=== PATIENT | female | born 1940 | race Caucasian/White ===

== ENCOUNTER 2017-05-15 06:40 | Day surgery (SDC) | payer MEDICARE, BC ==
[~2017-05-15 06:40] MED LIST: Acetaminophen TAB* 325 MG PO PRN; Buffered Lidocaine 0.9% SYRIN* 5 ML/SYR SYRINGE INTRADERM ONE
[2017-05-15] MEDS ORDERED: Midazolam* 1 MG/ML 2 ML VIAL (2 MG) ONE (07:17)
[2017-05-15 08:58] VITALS: BP 121/67
--- NOTE | 2017-05-15 10:04 | OP ---
DATE OF OPERATION: 05/15/2017. DATE OF : 1940 SURGEON: Poncho Fournier M.D. PREOPERATIVE DIAGNOSIS: Cataract right eye POSTOPERATIVE DIAGNOSIS: Cataract right eye. OPERATIVE PROCEDURE: Extracapsular cataract extraction with intraocular lens implant right eye. PROCEDURE: The patient was brought to the operating room after being given 1/2% Alcaine with epineph rine drops in the preoperative area. The eye was prepped and draped in the usual sterile fashion. S terile drape and eyelid speculum were placed. Again, topical 1/2% Alcaine with epinephrine was given . A paracentesis incision was made at the 9 o'clock position with the No.75 blade. Clear cornea inc ision 2.2 x 2.2-mm was created at the 12 o'clock position starting at the anterior limbus using the 2 .2-mm keratome. The anterior chamber was irrigated with 0.4 mL of 1% non-preservative intracameral l idocaine and filled with DisCoVisc. A capsulorrhexis was completed using the cystotome and the Utrat a forceps. Hydrodissection was performed with balanced salt solution. The lens nucleus was removed w ith the Phacoemulsification handpiece without incident. Cortex was removed with the irrigation-aspir ation handpiece. The capsular bag was re-inflated using DisCoVisc and an SN60WF 20.5 implant was ins erted with the shooter. The irrigation-aspiration handpiece was used to remove all residual DisCoVis c. The eye was refilled with balanced salt solution and the wound checked and found to be watertight . Topical Maxitrol drops were given. [id number]/[facility] #: [id number]
[2017-05-15] MEDS ORDERED: Ketorolac 0.5% OPHTH (NF) 0.5 % 5 ML BTL ONE (11:55)
[2017-05-15] MEDS ORDERED: Phenylephrine 2.5% OPTH.SOL* 2 ML BTL ONE (11:55)
[2017-05-15] MEDS ORDERED: Cyclopentolate 1% OPTH.SOL* 2 ML BTL ONE (11:55)
[2017-05-15] MEDS ORDERED: Neomycin/Polymy/Dex OPTH.SUSP* MAXITROL 0.1% 5 ML ONE (11:55)
[2017-05-15] MEDS ORDERED: Lidocaine 1% MPF* 2 ML VIAL ONE (11:55)
[2017-05-15] MEDS ORDERED: Proparacaine 0.5% OPHTH.SOL* 15 ML BTL ONE (11:55)
[2017-05-15] MEDS ORDERED: acetaZOLAMIDE TAB* 250 MG ONE (11:55)
[2017-05-15] MEDS ORDERED: Lidocaine 2% EPI 1:200000 MPF* 20 ML VIAL ONE (11:55)
[2017-05-15] MEDS ORDERED: Povidone Iodine 5% OPTH* 30 ML BTL ONE (11:55)
== END 2017-05-15 08:12 | disposition home or self-care (01) ==
LOC: OREAST 06:40
PROVIDERS: ATTEND Specialist
DX: H25.811 Combined forms of age-related cataract, right eye (principal); H43.813 Vitreous degeneration, bilateral; F32.9 Major depressive disorder, single episode, unspecified; E78.00 Pure hypercholesterolemia, unspecified; Z96.1 Presence of intraocular lens
CPT/HCPCS: A9270-GY; J2250; V2632

== ENCOUNTER 2017-08-09 20:25 | Emergency (ER) | payer MEDICARE, BC ==
--- NOTE | 2017-08-09 21:10 | UC ---
Lower Extremity/Ankle HPI - HPI Summary HPI Summary: 76 y/o female presents to the urgent care accompany by daughter c/o Left lower leg bruised and swollen since this afternoon. Daughter reports he mother lives alone w/ her 2 dogs. Pt doesn't recall any injury. However she states she is very active and she likes to walk her dogs. She noticed the swelling in increasing and she applied ice and her son gave her a baby ASA to alleviate symptoms. Daughter is concerned of a clot. Pain is 4/10 at touch. She has FROM of LF knee and LF ankle. Pt denies fever, recent URI, SOB, chest pain, palpitation, calf pain, recent travel, Hx of DVT, abdominal pain, N/V/D or numbness or tingling over the LF lower extremity. - History of Current Complaint Chief Complaint: UCLowerExtremity Stated Complaint: LEG COMPLAINT Time Seen by Provider: 08/09/17 21:07 Hx Obtained From: Patient, Family/Distribution Center Administrator - neda. ?: No - menopausal Onset/Duration: Sudden Onset, Lasting Hours - 8hrs, Still Present Severity Initially: Mild Severity Currently: Mild Pain Intensity: 2 Pain Scale Used: 0-10 Numeric Aggravating Factor(s): Other - touch Alleviating Factor(s): Rest, Ice, OTC Meds Able to Bear Weight: Yes - Risk Factors Gout Risk Factors: Age Over 40 DVT Risk Factors: Negative Septic Arthritis Risk Factor: Negative - Allergies/Home Medications Allergies/Adverse Reactions: Allergies Allergy/AdvReac Type Severity Reaction Status Date / Time amoxicillin Allergy Severe Hives Verified 08/09/17 20:34 Home Medications: Home Medications Cholecalciferol TAB* [Vitamin D TAB*] 08/09/17 [History] buPROPion TAB* [Wellbutrin TAB*] 08/09/17 [History] PMH/Surg Hx/FS Hx/Imm Hx Previously Healthy: Yes Other Endocrine History: Osteoporosis Other Neurological History: early onset Dementia - Surgical History Surgical History: Yes Surgery Procedure, Year, and Place: left shoulder repair 1995 [facility] [place]. left eye cataract extraction with IOL 2013 [facility] [place] - Family History Known Family History: Positive: Cardiac Disease Family History: Strokes - Social History Occupation: Retired Lives: Alone Alcohol Use: None Substance Use Type: None Smoking Status (MU): Former Smoker Amount Used/How Often: 1/ ppd for 10 years When Did the Patient Quit Smoking/Using Tobacco: 1999 - Immunization History Vaccination Up to Date: Yes Review of Systems Constitutional: Negative Skin: Bruising - medial aspect of left lower leg Eyes: Negative ENT: Negative Respiratory: Negative Cardiovascular: Negative Gastrointestinal: Negative Genitourinary: Negative Motor: Negative Neurovascular: Negative Musculoskeletal: Other: - Left lower leg pain Neurological: Negative Psychological: Negative Is Patient Immunocompromised?: No All Other Systems Reviewed And Are Negative: Yes Physical Exam - Summary Physical Exam Summary: Vital Signs Reviewed: Yes Appearance: Well-Appearing, No Pain Distress, Well-Nourished, thin female sitting in the examining table w/o any apparent distress. Eyes: Positive: Conjunctiva Clear - PERRLA< TERRY, fundi grossly WNL ENT: Positive: Normal ENT inspection, Hearing grossly normal, Pharynx normal, TMs normal, Uvula midline Neck: Positive: Supple, Nontender, No Lymphadenopathy Respiratory: Positive: Chest non-tender, Lungs clear, Normal breath sounds, No respiratory distress Cardiovascular: Positive: RRR, No Murmur, Pulses Normal, Brisk Capillary Refill Abdomen Description: Positive: Nontender, No Organomegaly, Soft. Negative: CVA Tenderness (R), CVA Tenderness (L) Bowel Sounds: Positive: Present Extremities: L extremity without deformity or asymmetry when compared to the R. Medial aspect of the distal left lower extremity w/ ecchymosis and bruising and moderate swelling, and mild induration and tender to palpation, no edema. No overlying erythema, warmth, discoloration. No lesions or break in skin integrity. Both calves same diameter. Soft tissues of posterior lower legs are soft, supple, nontender and no palpable cords or evidence of thrombophlebitis. No evidence of gangrene or compartment syndrome. Medial thigh is without soft tissue swelling or tender to palpation. Negative Homans sign. No proximal lymphangitis or lymphadenopathy. Neurological Exam: Normal Psychological Exam: Normal Skin Exam: Normal Triage Information Reviewed: Yes Vital Signs: Initial Vital Signs Temp 98.1 F 08/09/17 20:29 Pulse 92 08/09/17 20:29 Resp 18 08/09/17 20:29 BP 190/69 08/09/17 20:29 Pulse Ox 98 08/09/17 20:29 Lower Extremity Course/Dx - Course Course Of Treatment: 76 y/o female presents to the urgent care accompany by daughter c/o Left lower leg bruised and swollen since this afternoon. Daughter reports he mother lives alone w/ her 2 dogs. Pt doesn't recall any injury. However she states she is very active and she likes to walk her dogs. She noticed the swelling in increasing and she applied ice and her son gave her a baby ASA to alleviate symptoms. Daughter is concerned of a clot. Pain is 4/10 at touch. She has FROM of LF knee and LF ankle. Pt denies fever, recent URI, SOB, chest pain, palpitation, calf pain, recent travel, Hx of DVT, abdominal pain, N/V/D or numbness or tingling over the LF lower extremity. No Hx of recent surgery. Hx obtained. Pt w/ medial aspect of distal left lower extremity w/ a hematoma about 2.0cm x 2.0 cm in size, tender to palpation and swollen on examination. Pt w/ PMHX of osteoporosis and probably early onset of Dementia. Pt 's symptoms consulted w/ DR Giron. She evaluated Pt and she agreed on a conceled hematoma due possible contusion. She doen't think DVT since it is very superficial. She recommeded X-ray to r/o Fracture. LF lower extremity X-ray ordered: impression: negative for fracture, soft tissue swelling observed as per radiologist. Pt Rx Tyelenol for pain, Advise RICE. Daughter advised to continue applying ice and elevate lower leg and if not improvement of symptoms to f/u w/ PCP for further treatment. Pt's BP is elevated today advised to decrease salt in diet, monitor BP and f/u with PCP for further management. Re- cheched BP:160/88. Daughter and PT agreed w/ plan of care. Pt left the clinic ambulating, hemodynamically stable, A&OX3 - Differential Dx/Diagnosis Differential Diagnosis/HQI/PQRI: Arthritis, Contusion, Fracture (Closed), Sprain , Strain, Tendonitis Provider Diagnoses: 1- Medial aspect of distal left lower extremity w/ hematoma s/p injury. 2-Uncontrolled HTN Discharge - Discharge Plan Condition: Stable Disposition: HOME Prescriptions: Acetaminophen TAB* [Tylenol TAB*] 650 mg PO Q6H PRN #20 tab PRN Reason: Pain Patient Education Materials: Contusion in Adults (ED), Low-Sodium Diet (ED), Hematoma (ED) Referrals: Abbey Morgan MD [Medical Doctor] - 1 Week Additional Instructions: 1-Please take medications as directed to alleviate pain and swelling. 2-Please apply ice, Elevate leg, at night time, Avoid strenuous exercise or standing for long periods of time 3- Please f/u with your PCP in 1 week if not improvement of symptoms for further evaluation and treatment. 4- If your mother develops severe calf pain, SOB, palpitations please go immediately to the ER for further management 5-Your BP is elevated today. please decrease salt in your diet, monitor BP and if it continues to be elevated please f/u with your PCP for further management
--- NOTE | 2017-08-09 21:59 | RAD ---
Indication: Pain/bump medial distal lower leg. Uncertain of proceeding injury. Comparison: No relevant prior exams available on the [facility] PACS for comparison. Technique: AP and lateral views LEFT lower leg. Report: Focal soft tissue swelling medial aspect distal lower leg. No conspicuous subcutaneous emphysema or foreign body. Negative for fracture or malalignment. Small heel spurs. IMPRESSION: Soft tissue tissue swelling without additional finding.
[2017-08-09 22:22] VITALS: BP 160/88
== END 2017-08-09 22:27 | disposition home or self-care (01) ==
LOC: UCEAST 20:25
DX: S80.12XA Contusion of left lower leg, initial encounter (principal); X58.XXXA Exposure to other specified factors, initial encounter; Y93.9 Activity, unspecified; Y92.9 Unspecified place or not applicable; M81.0 Age-related osteoporosis without current pathological fracture; F03.90 Unspecified dementia, unspecified severity, without behavioral disturbance, psychotic disturbance, mood disturbance, and anxiety; Z88.1 Allergy status to other antibiotic agents; Z87.891 Personal history of nicotine dependence
CPT/HCPCS: 99212; G0463

== ENCOUNTER 2020-10-24 21:01 | Inpatient (IN) ==
[2020-10-24 23:43] LABS: ABS Basophils 0.1 10^3/ul (0-0.2); ABS Eosinophils 0.1 10^3/ul (0-0.6); ABS Lymphocytes 2.1 10^3/ul (1.0-4.8); ABS Monocytes 1.1 10^3/ul (0-0.8); Eosinophil % 0.7 %; Hematocrit 44 % (35-47); Hemoglobin 14.8 g/dL (12.0-16.0); Lymphocyte % 15.9 %; Mean Corpuscular HGB Conc 33 g/dL (31-36); Mean Corpuscular Hemoglobin 31 pg (27-31); Mean Corpuscular Volume 93 fL (80-97); Mean Platelet Volume 7.7 fL (7.4-10.4); Platelet Count 292 10^3/uL (150-450); Red Blood Count 4.79 10^6 /uL (3.70-4.87); Red Cell Distribution Width 14 % (10-15); White Blood Count 13.4 10^3/uL (3.5-10.8)
[2020-10-24 23:59] LABS: Albumin 4.1 g/dL (3.2-5.2); Albumin/Globulin Ratio 1.3 (1-3); Calcium 9.9 mg/dL (8.6-10.3); EGFR African American 71.1 (>60); EGFR Non-African American 58.7 (>60); Globulin 3.1 g/dL (2-4); Potassium 3.7 mmol/L (3.5-5.0); Total Bilirubin 0.6 mg/dL (0.2-1.0); Total Protein 7.2 g/dL (6.4-8.9)
[2020-10-25] MEDS ORDERED: Iodixanol (CONTRAST) 320 MG/ML 100 ML SDV IV ONE (00:11)
[2020-10-25] MEDS ORDERED: Iohexol 350 (CONTRAST) 500 ML MDV IV ONE (00:14)
[2020-10-25 01:23] LABS: Urine Appearance Clear; Urine Bilirubin Negative (Negative); Urine Blood Negative (Negative); Urine Color Straw; Urine Glucose Negative (Negative); Urine Ketones Negative (Negative); Urine Nitrite Negative (Negative); Urine Protein Negative (Negative); Urine Specific Gravity 1.013 (1.002-1.030); Urine Urobilinogen Negative (Negative)
[2020-10-25 02:50] LABS: INR 1.18 (0.82-1.09)
[2020-10-25 02:51] LABS: Activated Partial Thrombo Time 30.5 seconds (26.0-38.0)
[2020-10-25] MEDS ORDERED: hydrALAZINE 20 mg/ml 1 ML Vial IV IV SLOW PU PRN ×2 (02:54→09:15)
[2020-10-26 04:31] LABS: Hematocrit 42 % (35-47); Hemoglobin 14.2 g/dL (12.0-16.0); Mean Corpuscular HGB Conc 34 g/dL (31-36); Mean Corpuscular Hemoglobin 31 pg (27-31); Mean Corpuscular Volume 92 fL (80-97); Mean Platelet Volume 7.8 fL (7.4-10.4); Platelet Count 277 10^3/uL (150-450); Red Blood Count 4.56 10^6 /uL (3.70-4.87); Red Cell Distribution Width 14 % (10-15); White Blood Count 11.9 10^3/uL (3.5-10.8)
[2020-10-26 04:52] LABS: EGFR African American 59.1 (>60); EGFR Non-African American 48.8 (>60); Magnesium 1.9 mg/dL (1.9-2.7); Phosphorus 3.5 mg/dL (2.5-5.0); Potassium 4.1 mmol/L (3.5-5.0)
[2020-10-26] MEDS ORDERED: Magnesium Sulfate IV 1GM/100ML 1 GM/100 ML BAG IV ONE (07:37)
[2020-10-26 11:26] VITALS: BP 107/53
== END 2020-10-26 13:00 | disposition home health service (06) | DRG 87 ==
LOC: ED 21:01 → EDHOLD 10-25 02:27 → ICU 10-25 07:10
PROVIDERS: ADMIT Internal Medicine; ATTEND Surgery Surgical Critical Care

== ENCOUNTER 2022-10-17 12:38 | Inpatient (IN) ==
[2022-10-17] MEDS ORDERED: cefTRIAXone 1 gm/50 mL D5W 1 GM/50 ML BAG IV ONE (12:47)
[2022-10-17 13:33] LABS: ABS Basophils 0.1 10^3/uL (0.0-0.1); ABS Eosinophils 0.1 10^3/uL (0.0-0.5); ABS Lymphocytes 0.2 10^3/uL (1.0-4.8); ABS Monocytes 0.7 10^3/uL (0.0-0.9); ABS Neutrophils 15.2 10^3/uL (1.5-7.6); ABS Nucleated RBC 0.01 10^3/ul; Eosinophil % 0.9 %; Hemoglobin 13.6 g/dL (11.5-14.3); Lymphocyte % 1.4 %; Mean Corpuscular Hemoglobin 31.1 pg (27-33); Mean Corpuscular Hgb Conc 33.1 g/dL (31-36); Mean Platelet Volume 7.3 fL (7.5-11.2); Platelet Count 267 10^3/uL (150-450); Red Blood Count 4.36 10^6/uL (3.63-4.92); Red Cell Distribution Width 13.5 % (12-17); White Blood Count 16.3 10^3/uL (3.8-11.8)
[2022-10-17 13:42] LABS: Activated Partial Thrombo Time 29.9 seconds (26.0-38.0); INR 1.28 (0.88-1.18)
[2022-10-17 13:56] LABS: Albumin 3.4 g/dL (3.2-5.2); Albumin/Globulin Ratio 1.4 (1-3); C Reactive Protein 70.74 mg/L (<8.01); Calcium 8.2 mg/dL (8.6-10.3); Creatinine, Serum 1.19 mg/dL (0.51-0.95); Globulin 2.4 g/dL (2-4); Total Bilirubin 0.4 mg/dL (0.2-1.0); Total Protein 5.8 g/dL (6.4-8.9); eGFR CKD-EPI 45.7 (>60)
[2022-10-17 14:44] LABS: Urine Appearance Cloudy; Urine Bilirubin Negative (Negative); Urine Blood Negative (Negative); Urine Color Yellow; Urine Glucose Negative (Negative); Urine Ketones Negative (Negative); Urine Nitrite Negative (Negative); Urine Protein 1+(30 mg/dL) (Negative); Urine Specific Gravity 1.021 (1.002-1.030); Urine Urobilinogen Negative (Negative)
[2022-10-17 15:01] LABS: High Sensitivity Troponin 1 Hr 25 pg/mL (<15)
[2022-10-17 15:04] LABS: Urine Bacteria Absent (Absent); Urine Red Blood Cell 2+(6-10/hpf) (Absent); Urine Squamous Epithelial Cell Present (Absent); Urine White Blood Cell Trace(0-5/hpf) (Absent)
[2022-10-17] MEDS ORDERED: Iodixanol (CONTRAST) 320 MG/ML 100 ML SDV IV ONE (17:14)
[2022-10-17] MEDS ORDERED: Lactated Ringers 1000 ml BAG 1,000 ML IV ONE (20:48)
[2022-10-17] MEDS ORDERED: Polyethylene Glycol 3350 17 GM PACKET PO PRN (20:57)
[2022-10-17] MEDS ORDERED: Senna TAB 8.6 mg TAB PO PRN (20:57)
[2022-10-17] MEDS: Enoxaparin 30 MG/0.3 ML SYR SUBCUT SCH (22:14)
[2022-10-17] MEDS ORDERED: Acetaminophen IV 1 GM/100ML 1,000 MG/100 ML BAG IV PRN (22:35)
[2022-10-18] MEDS: DOXYcycline 100 MG in NS 0.9% 250 ml 250 ML IVPB SCH ×4 (01:00→23:49)
[2022-10-18] MEDS: metroNIDAZOLE IV 500 MG/100ML 500 MG/100 ML BAG IVPB SCH ×3 (02:15→17:24)
[2022-10-18 06:19] LABS: ABS Eosinophils 0.8 10^3/uL (0.0-0.5); ABS Lymphocytes 0.6 10^3/uL (1.0-4.8); ABS Monocytes 0.8 10^3/uL (0.0-0.9); Eosinophil % 10.5 %; Hematocrit 37.9 % (35-45); Lymphocyte % 7.8 %; Mean Corpuscular Hemoglobin 31.4 pg (27-33); Mean Corpuscular Hgb Conc 34.2 g/dL (31-36); Mean Corpuscular Volume 91.8 fL (80-97); Mean Platelet Volume 7.2 fL (7.5-11.2); Platelet Count 214 10^3/uL (150-450); Red Blood Count 4.13 10^6/uL (3.63-4.92); Red Cell Distribution Width 13.5 % (12-17); White Blood Count 7.2 10^3/uL (3.8-11.8)
[2022-10-18 06:37] LABS: Calcium 8.4 mg/dL (8.6-10.3); Creatinine, Serum 0.87 mg/dL (0.51-0.95); Magnesium 1.7 mg/dL (1.9-2.7); Potassium 4.1 mmol/L (3.5-5.0); eGFR CKD-EPI 66.5 (>60)
[2022-10-18] MEDS ORDERED: Magnesium Sulfate 2 gm BAG 2 GM/50 ML BAG IVPB ONE (06:53)
[2022-10-18] MEDS ORDERED: PEG 3000 GI LAVAGE 1 GALLON PO ONE (09:00)
[2022-10-18] MEDS: Polyethylene Glycol 3350 17 GM PACKET PO SCH (11:22)
[2022-10-18] MEDS: MEMANTINE 28 MG PO SCH (12:44)
[2022-10-18] MEDS ORDERED: cefTRIAXone 1 gm/50 mL D5W 1 GM/50 ML BAG IV SCH (13:00)
[2022-10-18] MEDS ORDERED: Senna TAB 8.6 mg TAB PO SCH (21:00)
[2022-10-18] MEDS: Enoxaparin 30 MG/0.3 ML SYR SUBCUT SCH (22:51)
[2022-10-19] MEDS: metroNIDAZOLE IV 500 MG/100ML 500 MG/100 ML BAG IVPB SCH (02:08)
[2022-10-19 06:24] LABS: ABS Eosinophils 0.8 10^3/uL (0.0-0.5); ABS Lymphocytes 0.8 10^3/uL (1.0-4.8); ABS Neutrophils 7.5 10^3/uL (1.5-7.6); ABS Nucleated RBC 0.01 10^3/ul; Eosinophil % 7.5 %; Hemoglobin 13.3 g/dL (11.5-14.3); Lymphocyte % 7.7 %; Mean Corpuscular Hemoglobin 31.4 pg (27-33); Mean Corpuscular Hgb Conc 34.1 g/dL (31-36); Mean Corpuscular Volume 92.3 fL (80-97); Mean Platelet Volume 7.7 fL (7.5-11.2); Nucleated Red Blood Cells % 0.1 /100 WBC (0.0-0.4); Platelet Count 238 10^3/uL (150-450); Red Blood Count 4.23 10^6/uL (3.63-4.92); Red Cell Distribution Width 13.7 % (12-17); White Blood Count 10.1 10^3/uL (3.8-11.8)
[2022-10-19 06:55] LABS: Calcium 8.4 mg/dL (8.6-10.3); Creatinine, Serum 0.82 mg/dL (0.51-0.95); Magnesium 1.9 mg/dL (1.9-2.7); eGFR CKD-EPI 71.4 (>60)
[2022-10-19] MEDS: Polyethylene Glycol 3350 17 GM PACKET PO SCH (08:38)
[2022-10-19] MEDS: MEMANTINE 28 MG PO SCH (08:38)
[2022-10-19] MEDS: DOXYcycline 100 MG in NS 0.9% 250 ml 250 ML IVPB SCH (09:34)
[2022-10-19 09:50] VITALS: BP 133/69
== END 2022-10-19 12:15 | disposition home or self-care (01) | DRG 871 ==
LOC: ED 12:38 → SUATTDRO 20:57 → EDHOLD 20:57 → MED 10-18 14:56
PROVIDERS: ADMIT Internal Medicine; ATTEND Student in an Organized Health Care Education/Training Program